=== PATIENT | male | born 1990 | race Caucasian/White ===

== ENCOUNTER 2021-02-16 20:00 | Emergency (ER) | payer OTHER ==
[2021-02-16] MEDS ORDERED: Pantoprazole 40 MG Vial IVPUSH ONE (20:26)
[2021-02-16] MEDS ORDERED: Sodium Chloride 0.9% 10 ML Syringe FLUSH PRN (20:26)
[2021-02-16] MEDS ORDERED: Aspirin 81 MG Tab.Chew PO ONE (20:27)
[2021-02-16] MEDS ORDERED: LORazepam 2 MG/ML SDV IVPUSH ONE (20:28)
[2021-02-16] MEDS ORDERED: Ketorolac 30 MG/ML SDV IVPUSH ONE (20:28)
--- NOTE | 2021-02-16 20:35 | EDM.PDOC ---
ED HPI GENERAL MEDICAL PROBLEM - General Chief Complaint: Cardiovascular Problem Stated Complaint: anxiety attack chest pain Time Seen by Provider: 02/16/21 20:30 Source of Information: Reports: Patient History Limitations: Reports: No Limitations - History of Present Illness INITIAL COMMENTS - FREE TEXT/NARRATIVE: Presents with substernal chest pain radiating to left arm since 0230 today. Symptoms wax and wane. Also endorses tingling to hands and feet and SOB. Patient has been under a lot of stress and feels anxious. He and his fight daily and patient is considering a divorce. Denies prior h/o CAD. There is no family history of CAD. Onset Date: 02/16/21 Onset Time: 02:30 Location: Reports: Chest Quality: Reports: Ache Severity: Moderate - Related Data Allergies Allergy/AdvReac Type Severity Reaction Status Date / Time No Known Allergies Allergy Verified 12/21/15 10:06 Home Meds: Home Meds LORazepam [Ativan] 1 mg PO Q12H PRN #10 tablet 02/16/21 [Rx] Past Medical History - Past Health History Medical/Surgical History: Denies Medical/Surgical History Social & Family History - Tobacco Use Tobacco Use Within Last Twelve Months: No ED ROS GENERAL - Review of Systems Review Of Systems: Comprehensive ROS is negative, except as noted in HPI. ED EXAM, GENERAL - Physical Exam Exam: See Below Exam Limited By: No Limitations General Appearance: Alert, WD/WN, No Apparent Distress Nose: Normal Inspection Throat/Mouth: Normal Voice, No Airway Compromise Head: Atraumatic, Normocephalic Respiratory/Chest: No Respiratory Distress, Lungs Clear, Normal Breath Sounds, Other (Reproducible chest wall tenderness present) Cardiovascular: Regular Rate, Rhythm, No Murmur Peripheral Pulses: 3+: Radial (L) GI/Abdominal: Soft, Non-Tender, No Distention Back Exam: Full Range of Motion Extremities: Normal Range of Motion, Non-Tender, No Pedal Edema, Normal Capillary Refill Neurological: Alert, Oriented, Normal Cognition, No Motor/Sensory Deficits Psychiatric: Anxious, Flat Affect Skin Exam: Warm, Dry, Intact #1 Interpretation EKG Date: 02/16/21 Time: 20:07 Rhythm: NSR Rate (Beats/Min): 86 [place]: Normal P-Wave: Present QRS: Normal ST-T: Elevated (normal early repolarization pattern) QT: Normal Comparison: NA - No Prior EKG Course - Orders/Labs/Meds Orders: Active Orders 24 hr Category Date Time Status EKG Documentation Completion [RC] ASDIRECTED Care 02/16/21 20:26 Active CXR [Chest 1V Frontal] [CR] Stat Exams 02/16/21 20:25 Taken Sodium Chloride 0.9% [Saline Flush] Med 02/16/21 20:26 Active 10 ml FLUSH ASDIRECTED PRN Saline Lock Insert [OM.PC] Routine Oth 02/16/21 20:26 Ordered EKG 12 Lead [EK] Stat Ther 02/16/21 20:26 Ordered Medication Orders Sodium Chloride (Sodium Chloride 0.9% 10 Ml Syringe) 10 ml FLUSH ASDIRECTED PRN PRN Reason: Keep Vein Open Last Admin: 02/16/21 21:05 Dose: 10 ml Documented by: DAWSON Labs: Laboratory Tests 02/16/21 02/16/21 02/16/21 Range/Units 20:40 20:40 20:40 WBC 8.7 (3.2-10.1) x10-3/uL RBC 5.64 (3.90-5.90) x10(6)uL Hgb 16.5 (12.9-17.7) g/dL Hct 48.2 (38.3-50.1) % MCV 85.5 (80.8-98.7) fL MCH 29.2 (27.0-33.3) pg MCHC 34.2 (28.7-35.3) g/dL RDW 12.8 (12.4-15.0) % Plt Count 361 (117-477) x10(3)uL MPV 6.9 (6.7-11.0) fL Neut % (Auto) 56.6 (40.3-71.8) % Lymph % (Auto) 35.3 (15.8-45.3) % [place] % (Auto) 6.0 (5.5-15.2) % Eos % (Auto) 1.7 (0.1-6.8) % Baso % (Auto) 0.4 (0.3-3.8) % Neut # (Auto) 4.9 (1.7-6.9) x10-3/uL Lymph # (Auto) 3.1 (0.5-4.5) x10-3/uL [place] # (Auto) 0.5 (0.0-1.2) x10-3/uL Eos # (Auto) 0.1 (0.0-0.6) x10-3/uL Baso # (Auto) 0.0 (0.0-0.3) x10-3/uL PT 11.0 (9.0-11.1) sec INR 1.02 (1.00-1.24) APTT 24.6 (24.4-33.2) SECONDS D-Dimer, Quantitative 0.21 (0.0-0.59) mg/LFEU Sodium 143 (135-145) mmol/L Potassium 3.8 (3.5-5.3) mmol/L Chloride 104 (100-110) mmol/L Carbon Dioxide 29 (21-32) mmol/L BUN 11 (7-18) mg/dL Creatinine 1.2 (0.70-1.30) mg/dL Est Cr Clr Drug Dosing TNP Estimated GFR (MDRD) > 60 (>60) BUN/Creatinine Ratio 9.2 (9-20) Glucose 93 (80-116) mg/dL Calcium 8.8 (8.6-10.2) mg/dL Troponin I (4.0-60.3) pg/mL 02/16/21 Range/Units 20:40 WBC (3.2-10.1) x10-3/uL RBC (3.90-5.90) x10(6)uL Hgb (12.9-17.7) g/dL Hct (38.3-50.1) % MCV (80.8-98.7) fL MCH (27.0-33.3) pg MCHC (28.7-35.3) g/dL RDW (12.4-15.0) % Plt Count (117-477) x10(3)uL MPV (6.7-11.0) fL Neut % (Auto) (40.3-71.8) % Lymph % (Auto) (15.8-45.3) % [place] % (Auto) (5.5-15.2) % Eos % (Auto) (0.1-6.8) % Baso % (Auto) (0.3-3.8) % Neut # (Auto) (1.7-6.9) x10-3/uL Lymph # (Auto) (0.5-4.5) x10-3/uL [place] # (Auto) (0.0-1.2) x10-3/uL Eos # (Auto) (0.0-0.6) x10-3/uL Baso # (Auto) (0.0-0.3) x10-3/uL PT (9.0-11.1) sec INR (1.00-1.24) APTT (24.4-33.2) SECONDS D-Dimer, Quantitative (0.0-0.59) mg/LFEU Sodium (135-145) mmol/L Potassium (3.5-5.3) mmol/L Chloride (100-110) mmol/L Carbon Dioxide (21-32) mmol/L BUN (7-18) mg/dL Creatinine (0.70-1.30) mg/dL Est Cr Clr Drug Dosing Estimated GFR (MDRD) (>60) BUN/Creatinine Ratio (9-20) Glucose (80-116) mg/dL Calcium (8.6-10.2) mg/dL Troponin I 22.6 (4.0-60.3) pg/mL Meds: Medications Generic Name Dose Route Start Last Admin Trade Name Nabila PRN Reason Stop Dose Admin Sodium Chloride 10 ml 02/16/21 20:26 02/16/21 21:05 Sodium Chloride 0.9% 10 Ml Syringe FLUSH 10 ml ASDIRECTED PRN Administration Keep Vein Open Discontinued Medications Generic Name Dose Route Start Last Admin Trade Name Nabila PRN Reason Stop Dose Admin Aspirin 324 mg 02/16/21 20:27 02/16/21 20:48 Aspirin 81 Mg Tab.Chew PO 02/16/21 20:28 324 mg ONETIME ONE Administration Ketorolac Tromethamine 30 mg 02/16/21 20:28 02/16/21 20:49 Ketorolac 30 Mg/Ml Sdv IVPUSH 02/16/21 20:29 30 mg ONETIME ONE Administration Lorazepam 0.5 mg 02/16/21 20:28 02/16/21 20:48 Lorazepam 2 Mg/Ml Sdv IVPUSH 02/16/21 20:29 0.5 mg ONETIME ONE Administration Pantoprazole Sodium 40 mg 02/16/21 20:26 02/16/21 20:48 Pantoprazole 40 Mg Vial IVPUSH 02/16/21 20:27 40 mg ONETIME ONE Administration - Radiology Interpretation Free Text/Narrative:: CXR: No acute process (ED provider interpretation) - Re-Assessments/Exams Free Text/Narrative Re-Assessment/Exam: 02/16/21 22:04 Symptoms improved after Ativan and Toradol. Departure - Departure Time of Disposition: 22:04 Disposition: Home, Self-Care 01 Condition: Good Clinical Impression: Anxiety reaction, Chest wall pain Prescriptions: LORazepam [Ativan] 1 mg PO Q12H PRN #10 tablet PRN Reason: Anxiety Instructions: Managing Anxiety, Adult, Chest Wall Pain Referrals: Roz Dumont DOPE EDGER [Ordering Only Provider] - 2 Days Forms: ED Department Discharge Additional Instructions: Fill the prescription for Ativan at [facility] in [place] and take as directed. You may also take OTC Ibuprofen 600 mg every 6 hours as needed to control pain. Follow up with your primary physician in 2-3 days. Return to the ER if symptoms worsen. - My Orders Last 24 Hours: My Active Orders 02/16/21 20:25 CXR [Chest 1V Frontal] [CR] Stat 02/16/21 20:26 EKG Documentation Completion [RC] ASDIRECTED Sodium Chloride 0.9% [Saline Flush] 10 ml FLUSH ASDIRECTED PRN Saline Lock Insert [OM.PC] Routine EKG 12 Lead [EK] Stat - Assessment/Plan Last 24 Hours: My Active Orders 02/16/21 20:25 CXR [Chest 1V Frontal] [CR] Stat 02/16/21 20:26 EKG Documentation Completion [RC] ASDIRECTED Sodium Chloride 0.9% [Saline Flush] 10 ml FLUSH ASDIRECTED PRN Saline Lock Insert [OM.PC] Routine EKG 12 Lead [EK] Stat
[2021-02-16 22:05] VITALS: BP 139/101; PULSE 88
--- NOTE | 2021-02-17 10:36 | CR ---
INDICATION: Chest pain central - left arm pain. CHEST ONE VIEW: AP upright portable view of the chest was obtained 02/16/21 - no comparisons. The heart did not appear enlarged. Overlying EKG leads are noted. Mediastinum is unremarkable. An active infiltrate or effusion was not identified. IMPRESSION: No acute process. MTDD
== END 2021-02-16 22:30 | disposition home or self-care (01) ==
LOC: FB.ED 20:00
DX: F41.1 Generalized anxiety disorder (principal)
CPT/HCPCS: 36415; 71045; 80048; 84484; 85025; 85379; 85610; 85730; 93005; 93010; 96374; 96375; 99283; 99285-25; A9270-GY; C9113; J1885; J2060